=== PATIENT | male | born 1945 | race African-American/Black ===

== ENCOUNTER 2017-07-01 05:47 | Observation (INO) ==
[2017-07-01] MEDS ORDERED: diphenhydrAMINE CAP 25 MG CAPSULE PO ONE (06:00)
[2017-07-01] MEDS ORDERED: ASPIRIN 325 MG TABLET PO ONE (06:00)
[2017-07-01] MEDS ORDERED: DIAZEPAM 5 MG TABLET PO ONE (06:00)
[2017-07-01] MEDS ORDERED: MAGNESIUM SULF RIDER 2 GM in PREMIX 1 EACH IV PRN (06:00)
[2017-07-01] MEDS ORDERED: SODIUM CHLORIDE 0.9% 1,000 ML IV SCH ×2 (06:00→10:00)
[2017-07-01] MEDS ORDERED: POTASSIUM CHLORIDE RIDER 10 MEQ in PREMIX 1 EACH IV PRN (06:00)
[2017-07-01 07:38] LABS: Basophils % 0.2 % (0.0-0.8); Eosinophils # 0.2 10*3/uL (0.0-0.87); Eosinophils % 5.5 % (0.00-10.9); Hematocrit 34.7 VOL% (42.0-52.0); Hemoglobin 11.9 GM/DL (14.0-18.0); Immature Granulocytes % 0.2 %; Immature Granulocytes Absolute 0.01 #; Lymphocytes # 1.7 10*3/uL (1.4-4.0); Lymphocytes % 38.2 % (21.2-54.2); Mean Corpuscular HGB Conc 34.3 GM/DL (32-36); Mean Corpuscular Hemoglobin 28 PG (27-34); Mean Corpuscular Volume 80.5 FL (87-102); Mean Platelet Volume 10.5 FL (9.6-12.0); Monocytes # 0.4 10*3/uL (0.11-0.8); Monocytes % 9.7 % (1.7-12.7); Neutrophils % 46.2 % (38.7-73.9); Platelet Count 181 T/CUMM (130-400); Red Blood Count 4.31 MC/CUMM (3.8-5.5); Red Cell Distribution Width 14.2 % (9.3-17.3); White Blood Count 4.4 T/CUMM (4-12)
[2017-07-01] MEDS ORDERED: DIAZEPAM 5 MG TABLET ONE (07:48)
[2017-07-01] MEDS ORDERED: diphenhydrAMINE CAP 25 MG CAPSULE ONE (07:48)
[2017-07-01] MEDS ORDERED: ASPIRIN 325 MG TABLET ONE (07:48)
[2017-07-01 07:51] LABS: Calcium 9.1 MG/DL (8.5-10.1); Osmolality,Calculated 286.3 MOS/KG (273-304); Potassium 3.6 MMOL/L (3.5-5.1)
[2017-07-01 07:54] LABS: INR 1.1; PT Patient Result 11.2 SECS
[2017-07-01] MEDS ORDERED: fentaNYL 100 MCG/2 ML VIAL ONE (08:08)
[2017-07-01] MEDS ORDERED: NITROGLYCERIN DRIP 50 MG/250 ML BOTTLE IV ONE (08:08)
[2017-07-01] MEDS ORDERED: MIDAZOLAM 2 MG/2 ML VIAL ONE (08:08)
[2017-07-01] MEDS ORDERED: LIDOCAINE 2% 20 ML VIAL ONE (08:08)
[2017-07-01] MEDS ORDERED: VERAPAMIL 5 MG/2 ML VIAL ONE (08:08)
[2017-07-01] MEDS ORDERED: ENOXAPARIN 60 MG/0.6 ML SYRINGE ONE (08:34)
[2017-07-01] MEDS ORDERED: TIROFIBAN 5,000 MCG/100 ML PREMIX IV SCH (09:00)
[2017-07-01] MEDS ORDERED: TIROFIBAN 5,000 MCG/100 ML PREMIX IV ONE (09:01)
[2017-07-01] MEDS ORDERED: TICAGRELOR 90 MG TABLET ONE (09:27)
[2017-07-01] MEDS ORDERED: FAMOTIDINE 20 MG TABLET PO PRN (09:34)
[2017-07-01] MEDS ORDERED: NITROGLYCERIN SL 0.4 MG TABLET SL PRN (09:34)
[2017-07-01] MEDS ORDERED: ZALEPLON 5 MG CAPSULE PO PRN (09:35)
[2017-07-01] MEDS ORDERED: ONDANSETRON 4 MG/2 ML VIAL IV PRN (09:35)
[2017-07-01] MEDS ORDERED: ACETAMINOPHEN 325 MG TABLET PO PRN (09:35)
[2017-07-01] MEDS ORDERED: DEXTROSE 50% 25 GM/50 ML VIAL IV PRN (09:35)
[2017-07-01] MEDS ORDERED: GLUCAGON 1 MG VIAL IM PRN (09:35)
[2017-07-01] MEDS: INSULIN REGULAR 100 UNIT/ML SUBCUT SCH ×3 (13:02→20:48)
[2017-07-01] MEDS: GABAPENTIN 300 MG CAPSULE PO SCH ×2 (15:57→20:45)
[2017-07-01] MEDS: TICAGRELOR 90 MG TABLET PO SCH (20:45)
[2017-07-01] MEDS: LABETALOL 200 MG TABLET PO SCH (20:45)
[2017-07-01] MEDS ORDERED: INSULIN GLARGINE 100 UNIT/ML SUBCUT SCH (21:00)
[2017-07-02 02:33] LABS: Basophils % 0.2 % (0.0-0.8); Eosinophils # 0.3 10*3/uL (0.0-0.87); Hematocrit 36.3 VOL% (42.0-52.0); Hemoglobin 12.2 GM/DL (14.0-18.0); Immature Granulocytes % 0.4 %; Immature Granulocytes Absolute 0.02 #; Lymphocytes # 1.2 10*3/uL (1.4-4.0); Lymphocytes % 26.7 % (21.2-54.2); Mean Corpuscular HGB Conc 33.6 GM/DL (32-36); Mean Corpuscular Hemoglobin 28 PG (27-34); Mean Corpuscular Volume 82.3 FL (87-102); Mean Platelet Volume 10.7 FL (9.6-12.0); Monocytes # 0.4 10*3/uL (0.11-0.8); Monocytes % 8.4 % (1.7-12.7); Neutrophils # 2.6 10*3/uL (1.4-7.4); Neutrophils % 58.3 % (38.7-73.9); Platelet Count 182 T/CUMM (130-400); Red Blood Count 4.41 MC/CUMM (3.8-5.5); Red Cell Distribution Width 14.3 % (9.3-17.3); White Blood Count 4.5 T/CUMM (4-12)
[2017-07-02 03:13] LABS: Blood Urea Nitrogen 23 MG/DL (7-18); Calcium 8.5 MG/DL (8.5-10.1); Cholesterol 116 MG/DL (50-200); Glucose 127 MG/DL (74-106); HDL Cholesterol 36 MG/DL (40-60); Potassium 4.1 MMOL/L (3.5-5.1); Risk Ratio 3.22; Sodium 143 MMOL/L (136-145); Triglycerides 117 MG/DL (2-150); Troponin I Only < 0.015 NG/ML (0.00-0.045); VLDL CHOLESTEROL 23.4 MG/DL
[2017-07-02] MEDS ORDERED: GLIMEPIRIDE 4 MG TABLET PO SCH (08:00)
[2017-07-02] MEDS: INSULIN REGULAR 100 UNIT/ML SUBCUT SCH ×2 (08:16→11:46)
[2017-07-02] MEDS: LABETALOL 200 MG TABLET PO SCH (08:16)
[2017-07-02] MEDS: TICAGRELOR 90 MG TABLET PO SCH (08:16)
[2017-07-02] MEDS: GABAPENTIN 300 MG CAPSULE PO SCH (08:16)
[2017-07-02] MEDS ORDERED: FLUTICASONE 50 MCG NASAL SPRAY 16 GM BOTTLE BOTH NARES SCH (09:00)
[2017-07-02] MEDS ORDERED: ALFUZOSIN 10 MG TABLET PO SCH (09:00)
[2017-07-02] MEDS ORDERED: ATORVASTATIN 40 MG TABLET PO SCH (09:00)
[2017-07-02] MEDS ORDERED: hydroCHLOROthiazide 12.5 MG CAPSULE PO SCH (09:00)
[2017-07-02] MEDS ORDERED: VALSARTAN 160 MG TABLET PO SCH (09:00)
[2017-07-02] MEDS ORDERED: ASPIRIN EC 81 MG TABLET PO SCH (09:00)
[2017-07-02 11:48] VITALS: BP 138/66
== END 2017-07-02 12:35 | disposition home or self-care (01) ==
LOC: N.CL 05:47 → N.TELES 05:47 → N.CL 06:07 → N.TELES 11:53
PROVIDERS: ADMIT Internal Medicine Cardiovascular Disease; ATTEND Internal Medicine Cardiovascular Disease
PROC: CLCCHCL (ICD-10-PCS; 2017-07-01 10:45)

== ENCOUNTER 2022-01-08 06:59 | Inpatient (IN) ==
[2022-01-08] MEDS ORDERED: SODIUM CHLORIDE 0.9% 500 ML IV STA (07:29)
[2022-01-08] MEDS ORDERED: MEROPENEM 500 MG in SODIUM CHLORIDE 0.9% 100 ML IV STA (07:29)
[2022-01-08 07:34] LABS: Basophils % 0.2 % (0.0-0.8); Eosinophils # 0.1 10*3/uL (0.0-0.87); Eosinophils % 0.5 % (0.00-10.9); Hematocrit 25.9 VOL% (42.0-52.0); Hemoglobin 8.7 GM/DL (14.0-18.0); Immature Granulocytes % 0.8 %; Lymphocytes # 0.5 10*3/uL (1.4-4.0); Mean Corpuscular HGB Conc 33.6 GM/DL (32-36); Mean Corpuscular Volume 79.4 FL (87-102); Monocytes # 0.9 10*3/uL (0.11-0.8); Monocytes % 6.7 % (1.7-12.7); Neutrophils % 87.8 % (38.7-73.9); Platelet Count 166 T/CUMM (130-400); Red Blood Count 3.26 MC/CUMM (3.8-5.5); Red Cell Distribution Width 14.6 % (9.3-17.3); White Blood Count 12.7 T/CUMM (4-12)
[2022-01-08 07:47] LABS: Amorphous Crystals,Urine Few /HPF (Few); Bacteria,Urine Many /HPF (Few); Glucose,Urine (UA) Negative (Negative); Ketones,Urine Negative (Negative); Mucus,Urine Occasional /LPF (Occasional); Nitrite,Urine Positive (Negative); Protein,Urine 30 mg/dL (Negative); RBC,Urine 7 /HPF (0-4); Urine Appearance Clear (Clear); Urine Color Yellow (Yellow); Urine Specific Gravity 1.015 (1.001-1.035); Urine pH 5.5 (4.5-8.0)
[2022-01-08 07:48] LABS: Albumin 2.6 G/DL (3.4-5.0); Bilirubin,Total 0.6 MG/DL (0.20-1.00); Calcium 8.5 MG/DL (8.5-10.1); Potassium 3.4 MMOL/L (3.5-5.1); Total Protein 5.7 G/DL (6.4-8.2)
[2022-01-08 07:48] LABS: Bilirubin,Urine Negative (Negative); Blood, Urine Small mg/dL (Negative); Urine Urobilinogen 0.2 eU/dL (<2.0)
[2022-01-08 07:53] LABS: Hypochromia Slight; Lymphocytes 4 % (20-55); Microcytosis Slight; Platelet Estimate Adequate; Total Cells Counted 100
[2022-01-08] MEDS ORDERED: BISACODYL 5 MG TABLET PO PRN (13:53)
[2022-01-08] MEDS ORDERED: ONDANSETRON 4 MG/2 ML VIAL IV PRN (13:53)
[2022-01-08] MEDS ORDERED: ACETAMINOPHEN 325 MG TABLET PO PRN (13:53)
[2022-01-08] MEDS ORDERED: CALCIUM CARBONATE CHEW 500 MG TABLET PO PRN (13:53)
[2022-01-08] MEDS ORDERED: hydrALAZINE 20 MG/1 ML VIAL IV PRN (13:53)
[2022-01-08] MEDS ORDERED: DOCUSATE SODIUM 100 MG CAPSULE PO PRN (13:53)
[2022-01-08] MEDS ORDERED: GLUCAGON 1 MG VIAL IM PRN (13:53)
[2022-01-08] MEDS ORDERED: POTASSIUM CHLORIDE 20 MEQ TABLET PO ONE (13:59)
[2022-01-08] MEDS ORDERED: DEXTROSE 10% 250 ML BAG IV PRN (14:00)
[2022-01-08] MEDS ORDERED: NITROGLYCERIN SL 0.4 MG TABLET SL PRN (15:43)
[2022-01-08] MEDS ORDERED: cefTRIAXone 1,000 MG in SODIUM CHLORIDE 0.9% 100 ML IV SCH (16:00)
[2022-01-08] MEDS: SODIUM CHLORIDE 0.9% 1,000 ML IV SCH (16:51)
[2022-01-08] MEDS: INSULIN LISPRO 100 UNIT/ML SUBCUT SCH ×2 (16:51→20:49)
[2022-01-08 16:54] LABS: % Iron Saturation 15.4 % (18-50); Ferritin 373.5 ng/mL (26-388)
[2022-01-08 17:04] LABS: Folate 16.74 NG/ML (5.38-24.0)
[2022-01-08] MEDS: ENOXAPARIN 40 MG/0.4 ML SYRINGE SUBCUT SCH (20:47)
[2022-01-08] MEDS: GABAPENTIN 400 MG CAPSULE PO SCH (20:47)
[2022-01-08] MEDS: ROSUVASTATIN 20 MG TABLET PO SCH (20:47)
[2022-01-09] MEDS: SODIUM CHLORIDE 0.9% 1,000 ML IV SCH ×2 (00:12→17:00)
[2022-01-09 05:51] LABS: Basophils % 0.1 % (0.0-0.8); Eosinophils % 0.3 % (0.00-10.9); Hematocrit 29.2 VOL% (42.0-52.0); Hemoglobin 9.6 GM/DL (14.0-18.0); Immature Granulocytes % 0.7 %; Lymphocytes # 1.1 10*3/uL (1.4-4.0); Lymphocytes % 7.8 % (21.2-54.2); Mean Corpuscular HGB Conc 32.9 GM/DL (32-36); Mean Corpuscular Volume 81.1 FL (87-102); Mean Platelet Volume 10.6 FL (9.6-12.0); Monocytes % 6.9 % (1.7-12.7); Neutrophils % 84.2 % (38.7-73.9); Platelet Count 166 T/CUMM (130-400); White Blood Count 14.2 T/CUMM (4-12)
[2022-01-09 07:06] LABS: Calcium 8.3 MG/DL (8.5-10.1); Potassium 3.9 MMOL/L (3.5-5.1); Risk Ratio 2.03; Thyroid Stimulating Hormone 1.13 uIU/ml (0.358-3.74); VLDL Cholesterol 10.6 MG/DL
[2022-01-09] MEDS ORDERED: FERRIC GLUCONATE COMPLEX 125 MG in SODIUM CHLORIDE 0.9% 100 ML IV SCH (09:00)
[2022-01-09] MEDS ORDERED: LOSARTAN 50 MG TABLET PO SCH (09:00)
[2022-01-09] MEDS: PANTOPRAZOLE 40 MG TABLET PO SCH (09:10)
[2022-01-09] MEDS: CHOLECALCIFEROL 5,000 UNIT TABLET PO SCH (09:10)
[2022-01-09] MEDS: FINASTERIDE 5 MG TABLET PO SCH (09:10)
[2022-01-09] MEDS: ALFUZOSIN 10 MG TABLET PO SCH (09:10)
[2022-01-09] MEDS: INSULIN LISPRO 100 UNIT/ML SUBCUT SCH ×4 (09:43→19:59)
[2022-01-09] MEDS ORDERED: LIDOCAINE 2% TOP JELLY 20 ML VIAL INTRAURETH ONE (11:27)
[2022-01-09] MEDS: MEROPENEM 500 MG in SODIUM CHLORIDE 0.9% 100 ML IV SCH ×3 (13:57→23:45)
[2022-01-09] MEDS: GABAPENTIN 400 MG CAPSULE PO SCH (20:12)
[2022-01-09] MEDS: ROSUVASTATIN 20 MG TABLET PO SCH (20:12)
[2022-01-09] MEDS: ENOXAPARIN 40 MG/0.4 ML SYRINGE SUBCUT SCH (20:13)
[2022-01-10] MEDS: SODIUM CHLORIDE 0.9% 1,000 ML IV SCH ×3 (01:24→20:14)
[2022-01-10] MEDS: MEROPENEM 500 MG in SODIUM CHLORIDE 0.9% 100 ML IV SCH ×2 (05:09→12:26)
[2022-01-10 05:23] LABS: Basophils % 0.2 % (0.0-0.8); Eosinophils # 0.2 10*3/uL (0.0-0.87); Eosinophils % 2.1 % (0.00-10.9); Hematocrit 26.2 VOL% (42.0-52.0); Hemoglobin 8.5 GM/DL (14.0-18.0); Immature Granulocytes % 0.4 %; Immature Granulocytes Absolute 0.04 #; Lymphocytes # 1.2 10*3/uL (1.4-4.0); Lymphocytes % 12.2 % (21.2-54.2); Mean Corpuscular HGB Conc 32.4 GM/DL (32-36); Mean Corpuscular Volume 82.1 FL (87-102); Mean Platelet Volume 10.3 FL (9.6-12.0); Monocytes # 0.8 10*3/uL (0.11-0.8); Neutrophils % 77.1 % (38.7-73.9); Platelet Count 146 T/CUMM (130-400); Red Blood Count 3.19 MC/CUMM (3.8-5.5); White Blood Count 9.5 T/CUMM (4-12)
[2022-01-10 05:39] LABS: Osmolality,Calculated 290.6 MOS/KG (273-304); Potassium 4.1 MMOL/L (3.5-5.1)
[2022-01-10] MEDS: FINASTERIDE 5 MG TABLET PO SCH (08:55)
[2022-01-10] MEDS: PANTOPRAZOLE 40 MG TABLET PO SCH (08:55)
[2022-01-10] MEDS: ALFUZOSIN 10 MG TABLET PO SCH (08:55)
[2022-01-10] MEDS: CHOLECALCIFEROL 5,000 UNIT TABLET PO SCH (08:55)
[2022-01-10] MEDS: INSULIN LISPRO 100 UNIT/ML SUBCUT SCH ×4 (09:48→21:10)
[2022-01-10] MEDS: LEVOFLOXACIN INJ 500 MG/100 ML PREMIX IV SCH (13:52)
[2022-01-10] MEDS: SODIUM CHLORIDE 0.45% 1,000 ML IV SCH (17:48)
[2022-01-10] MEDS: GABAPENTIN 400 MG CAPSULE PO SCH (21:09)
[2022-01-10] MEDS: ROSUVASTATIN 20 MG TABLET PO SCH (21:09)
[2022-01-10] MEDS: ENOXAPARIN 40 MG/0.4 ML SYRINGE SUBCUT SCH (21:09)
[2022-01-10] MEDS: ZALEPLON 5 MG CAPSULE PO PRN (21:09)
[2022-01-11] MEDS: SODIUM CHLORIDE 0.45% 1,000 ML IV SCH ×4 (02:49→20:28)
[2022-01-11 05:44] LABS: Basophils % 0.3 % (0.0-0.8); Eosinophils # 0.3 10*3/uL (0.0-0.87); Eosinophils % 4.2 % (0.00-10.9); Hematocrit 27.4 VOL% (42.0-52.0); Hemoglobin 8.8 GM/DL (14.0-18.0); Immature Granulocytes % 0.3 %; Immature Granulocytes Absolute 0.02 #; Lymphocytes % 16.5 % (21.2-54.2); Mean Corpuscular HGB Conc 32.1 GM/DL (32-36); Mean Corpuscular Volume 80.8 FL (87-102); Mean Platelet Volume 9.9 FL (9.6-12.0); Monocytes # 0.6 10*3/uL (0.11-0.8); Monocytes % 9.2 % (1.7-12.7); Neutrophils % 69.5 % (38.7-73.9); Platelet Count 164 T/CUMM (130-400); Red Blood Count 3.39 MC/CUMM (3.8-5.5); Red Cell Distribution Width 14.7 % (9.3-17.3); White Blood Count 6.2 T/CUMM (4-12)
[2022-01-11 06:15] LABS: Osmolality,Calculated 291.7 MOS/KG (273-304); Potassium 4.1 MMOL/L (3.5-5.1)
[2022-01-11] MEDS: INSULIN LISPRO 100 UNIT/ML SUBCUT SCH ×4 (08:23→21:21)
[2022-01-11] MEDS: FINASTERIDE 5 MG TABLET PO SCH (09:34)
[2022-01-11] MEDS: CHOLECALCIFEROL 5,000 UNIT TABLET PO SCH (09:35)
[2022-01-11] MEDS: PANTOPRAZOLE 40 MG TABLET PO SCH (09:35)
[2022-01-11] MEDS: ALFUZOSIN 10 MG TABLET PO SCH (09:35)
[2022-01-11] MEDS: LEVOFLOXACIN INJ 500 MG/100 ML PREMIX IV SCH (12:54)
[2022-01-11] MEDS: ENOXAPARIN 40 MG/0.4 ML SYRINGE SUBCUT SCH (21:18)
[2022-01-11] MEDS: ZALEPLON 5 MG CAPSULE PO PRN (21:22)
[2022-01-11] MEDS: GABAPENTIN 400 MG CAPSULE PO SCH (21:22)
[2022-01-11] MEDS: ROSUVASTATIN 20 MG TABLET PO SCH (21:23)
[2022-01-12 05:23] LABS: Basophils % 0.2 % (0.0-0.8); Eosinophils # 0.4 10*3/uL (0.0-0.87); Eosinophils % 7.3 % (0.00-10.9); Hematocrit 28.2 VOL% (42.0-52.0); Hemoglobin 9.1 GM/DL (14.0-18.0); Immature Granulocytes % 0.6 %; Immature Granulocytes Absolute 0.03 #; Lymphocytes # 1.3 10*3/uL (1.4-4.0); Lymphocytes % 26.4 % (21.2-54.2); Mean Corpuscular HGB Conc 32.3 GM/DL (32-36); Mean Corpuscular Volume 81.5 FL (87-102); Mean Platelet Volume 10.6 FL (9.6-12.0); Monocytes # 0.5 10*3/uL (0.11-0.8); Monocytes % 9.8 % (1.7-12.7); Neutrophils % 55.7 % (38.7-73.9); Platelet Count 165 T/CUMM (130-400); Red Blood Count 3.46 MC/CUMM (3.8-5.5); Red Cell Distribution Width 14.6 % (9.3-17.3); White Blood Count 4.8 T/CUMM (4-12)
[2022-01-12 05:43] LABS: Calcium 8.6 MG/DL (8.5-10.1); Osmolality,Calculated 288.8 MOS/KG (273-304)
[2022-01-12] MEDS: SODIUM CHLORIDE 0.45% 1,000 ML IV SCH (06:36)
[2022-01-12] MEDS: INSULIN LISPRO 100 UNIT/ML SUBCUT SCH ×2 (08:14→12:34)
[2022-01-12] MEDS: FINASTERIDE 5 MG TABLET PO SCH (09:21)
[2022-01-12] MEDS: ALFUZOSIN 10 MG TABLET PO SCH (09:22)
[2022-01-12] MEDS: PANTOPRAZOLE 40 MG TABLET PO SCH (09:22)
[2022-01-12] MEDS: CHOLECALCIFEROL 5,000 UNIT TABLET PO SCH (09:22)
[2022-01-12 13:01] VITALS: BP 135/60
[2022-01-12] MEDS: LEVOFLOXACIN INJ 500 MG/100 ML PREMIX IV SCH (13:02)
== END 2022-01-12 14:49 | disposition home health service (06) | DRG 690 ==
LOC: EDUNIT# → EDBD → N.ED 06:59 → N.EDINP 13:53 → N.3E 14:56
PROVIDERS: ADMIT Internal Medicine; ATTEND Internal Medicine